=== PATIENT | female | born 1990 | race Caucasian/White ===

== ENCOUNTER 2019-08-19 13:07 | Emergency (ER) | payer MEDICAID ==
[~2019-08-19] VITALS: Ht 154.9 cm; Wt 51.2 kg
--- NOTE | 2019-08-19 13:37 | NUR ---
ECG PERFORMED BY TECH. TYLER SCHMIDT RN IN TRIAGE ROOM DURING WHOLE PROCEDURE. PT TOLERATED WITH NO COMPLICATIONS.
[2019-08-19] MEDS ORDERED: SODIUM CHLORIDE FLUSH 10ML SYR IVF ONE (14:00)
--- NOTE | 2019-08-19 15:44 | NUR ---
NO ANS X 1
--- NOTE | 2019-08-19 16:05 | NUR ---
TO ROOM FROM LOBBY. NAD.
[2019-08-19 17:08] LABS: BASOPHILS # (AUTO) 0.04 x10^3/uL (0-0.1); BASOPHILS % (AUTO) 1 % (0-1); EOSINOPHILS # (AUTO) 0.01 x10^3/uL (0-0.4); EOSINOPHILS % (AUTO) 0 % (1-7); LYMPHOCYTES # (AUTO) 0.99 x10^3/uL (1-3.4); LYMPHOCYTES % (AUTO) 24 % (22-44); MD NO; MEAN CORPUSCULAR HEMOGLOBIN 29.6 pg (27.0-34.8); MEAN CORPUSCULAR VOLUME 89.9 fL (80-100); MEAN PLATELET VOLUME 9.4 fL (7.4-10.4); MONOCYTES # (AUTO) 0.18 x10^3/uL (0.2-0.8); MONOCYTES % (AUTO) 4 % (2-9); NEUTROPHILS # (AUTO) 2.99 x10^3/uL (1.8-6.8); NEUTROPHILS % (AUTO) 71 % (42-75); PLATELET COUNT 194 x10^3/uL (130-400); RED CELL DISTRIBUTION WIDTH 13.4 % (9.6-15.2)
[2019-08-19 17:09] LABS: ALANINE AMINOTRANSFERASE 19 U/L (12-78); ALBUMIN 4.2 g/dL (3.4-5.0); ANION GAP 3 mmol/L (5-15); CALCIUM 9.2 mg/dL (8.5-10.1); CHLORIDE 112 mmol/L (98-107)
[2019-08-19 17:13] LABS: ALKALINE PHOSPHATASE 98 U/L (45-117); BILIRUBIN,TOTAL 0.4 mg/dL (0.2-1.0); TOTAL PROTEIN 8.3 g/dL (6.4-8.2)
[2019-08-19] MEDS ORDERED: KETOROLAC 60 MG/2 ML ONE (17:42)
--- NOTE | 2019-08-19 17:48 | NUR ---
PT DENIES ABILLITY TO PRODUCE UA AT THIS TIME
[2019-08-19 17:53] VITALS: BP 85/51
[2019-08-19] MEDS ORDERED: HYDROcodone/APAP 5/325 TABLET PO ONE (18:00)
[2019-08-19] MEDS ORDERED: KETOROLAC 60 MG/2 ML IM ONE (18:00)
[2019-08-19] MEDS ORDERED: SODIUM CHLORIDE 0.9% 1,000ML IVBOLUS ONE (18:00)
[2019-08-19] MEDS ORDERED: CARISOPRODOL 350 MG TABLET ONE (18:38)
--- NOTE | 2019-08-19 18:54 | NUR ---
REPORT FROM NICOL BANERJEE ASSUMING CARE OF PT AT THIS TIME
[2019-08-19] MEDS ORDERED: CARISOPRODOL 350 MG TABLET PO SCH (19:00)
--- NOTE | 2019-08-19 19:25 | NUR ---
PT BECOMING AGGIGTATED WANTING MORE MEDICATION PT INFORMED THAT DUE TO SIDE EFFECTS ON BP UNABLE TO GIVE MORE MEDICATION. ATTEMPTED TO REPOSITION PT REFUSING. AT BEDSIDE TO DISCUSS POC WITH PT
--- NOTE | 2019-08-19 19:38 | NUR ---
PT REFUSING TO MOVE AND REFUSING TO D/C WITHOUT MUSCLE RELAXANT MEDICATIONS. MD TO BE UPDATED
== END 2019-08-19 19:54 | disposition home or self-care (01) ==
LOC: ED 16:15
DX: R56.9 Unspecified convulsions (principal); M25.512 Pain in left shoulder; R51 Headache; R11.10 Vomiting, unspecified
CPT/HCPCS: 36415; 70450; 71045; 73030; 80053; 84703; 85025; 93005; 96360; 96372; 99284; J1885; J7030